=== PATIENT | male | born 1990 | race Caucasian/White ===

== ENCOUNTER 2016-09-15 14:09 | Emergency (ER) | payer BC ==
[2016-09-15 14:27] VITALS: BP 136/75; PULSE 59; TEMP 98.6; BMI 32.3
[2016-09-15] MEDS ORDERED: DIPHTH,PERTUSS(ACELL),TET 0.5 ML DISP.SYRIN IM ONE (15:45)
--- NOTE | 2016-09-15 15:52 | PDOC ---
History of Present Illness - General Chief Complaint: Laceration Stated Complaint: LACERATION LIP Time Seen by Provider: 09/15/16 15:17 History Source: Patient Exam Limitations: No Limitations - History of Present Illness Initial Comments: 09/15/16 15:45 26 yr male with laceration to left side upper lip after pt fell on a drinking glass. no dental trauma, no loose teeth no LOC. Past History - Past Medical History Allergies/Adverse Reactions: Allergies Allergy/AdvReac Type Severity Reaction Status Date / Time No Known Allergies Allergy Verified 09/15/16 14:24 Home Medications: Ambulatory Orders Amoxicillin/Potassium Clav [Augmentin 875-125 Tablet] 1 each PO BID #10 tablet 09/15/16 Diabetes: No Other medical history: denies. - Psycho/Social/Smoking Cessation Hx Suicidal Ideation: No Smoking History: Never smoked Review of Systems - Review of Systems Able to Perform ROS?: Yes Is the patient limited Japanese proficient: No Constitutional: No: Symptoms Reported HEENTM: Yes: See HPI *Physical Exam - Vital Signs Last Vital Signs Temp Pulse Resp BP Pulse Ox 98.6 F 59 L 19 136/75 99 09/15/16 14:24 09/15/16 14:24 09/15/16 14:24 09/15/16 14:24 09/15/16 14:24 - Physical Exam General Appearance: Yes: Nourished, Appropriately Dressed HEENT: positive: EOMI, SANDOVAL, Normal ENT Inspection, TMs Normal, Pharynx Normal, Other (left upper lip with 1.0cm laceration below vermilion border on the inside of lip ) Procedures - Laceration/Wound Repair Left Lip Wound Length: to 2.5 cm Wound Explored: clean Wound's Depth, Shape: into muscle Irrigated w/ Saline: Yes Betadine Prep: Yes Anesthesia: 1% Lidocaine Wound Repaired With: Sutures Suture Size/Type: 4:0, other (absorbable gut) Number of Sutures: 4 Medical Decision Making - Medical Decision Making 09/15/16 15:46 cc: lip laceration will repair with absorbable sutures, wound cleaned with copious amounts of saline and betadine/peroxide solution pt tolerated well will dc home with augmentin for 5 days good oral hygeine and strict followup with dental pt agrees with plan all questions asked and answered *DC/Admit/Observation/Transfer Diagnosis at time of Disposition: Lip laceration Qualifiers: Encounter type: initial encounter Qualified Code(s): S01.511A - Laceration without foreign body of lip, initial encounter - Discharge Dispostion Disposition: HOME Condition at time of disposition: Good - Prescriptions Prescriptions: Amoxicillin/Potassium Clav [Augmentin 875-125 Tablet] 1 each PO BID #10 tablet - Patient Instructions Additional Instructions: take Augmentin for 6 days to prevent infection ice pops, soft foods the next 24hrs follow with your dentist in one week the sutures will absorb on their own in about 7-10 days retutrn to ER for any signs of infection, pain or any other concerns
== END 2016-09-15 16:12 | disposition home or self-care (01) ==
LOC: JERFT 14:09
PROC: 0CQ03ZZ Repair Upper Lip, Percutaneous Approach (ICD-10-PCS; principal; 2016-09-15)
DX: S01.511A Laceration without foreign body of lip, initial encounter (principal); W01.10XA Fall on same level from slipping, tripping and stumbling with subsequent striking against unspecified object, initial encounter; Y93.89 Activity, other specified; Y92.89 Other specified places as the place of occurrence of the external cause; Y99.8 Other external cause status
CPT/HCPCS: 90715; 99281-25